=== PATIENT | female | born 1965 | race Caucasian/White ===

== ENCOUNTER 2019-06-18 15:28 | Emergency (ER) | payer SELFPAY ==
[2019-06-18 15:37] VITALS: BP 125/57; PULSE 58; TEMP 98.1; BMI 56.7
--- NOTE | 2019-06-18 15:37 | PDOC ---
Rapid Medical Evaluation Chief Complaint: Injury Time Seen by Provider: 06/18/19 15:32 Medical Evaluation: Allergies Allergy/AdvReac Type Severity Reaction Status Date / Time No Known Allergies Allergy Verified 05/21/15 15:25 06/18/19 15:35 Pt c/o: slipped yesterday on ice, now with rt neck pain, rt upper back and left wrist pain, no loc, no blood thinners Pt on brief exam: no cervical tenderness, left trap tenderness and edema acchymosis over pt ordered for: wrist xray Pt to proceed to the ED Discharge Disposition - Diagnosis Fall, Cervical strain, acute, Wrist sprain - Discharge Dispostion Disposition: HOME Condition at time of disposition: Stable - Prescriptions Prescriptions: Cyclobenzaprine HCl [Flexeril 10 mg] 10 mg PO HS PRN #10 tablet PRN Reason: Muscle Spasms Ibuprofen [Motrin -] 600 mg PO TID #30 tablet - Referrals Referrals: Aris Bean MD [Primary Care Provider] - - Patient Instructions Additional Instructions: You were given an injection of a long-acting anti-inflammatory in the emergency room. Do not start any other anti-inflammatories until tomorrow. You may start the Motrin as prescribed tomorrow. The Flexeril you may start this evening at 1 tablet at bedtime. Return to the emergency room for worsening symptoms and without fail follow-up with your primary care physician in 1 to 2 days for further evaluation and treatment options. - Post Discharge Activity Work/School Note: Back to Work
[2019-06-18] MEDS ORDERED: KETOROLAC TROMETHAMINE 60 MG/2 ML VIAL IM ONE (16:55)
[2019-06-18] MEDS ORDERED: KETOROLAC TROMETHAMINE 60 MG/2 ML VIAL ONE (16:56)
--- NOTE | 2019-06-18 17:06 | PDOC ---
History of Present Illness - General Chief Complaint: Injury Stated Complaint: FALL / NECK PAIN Time Seen by Provider: 06/18/19 15:32 - History of Present Illness Initial Comments: 06/18/19 17:01 53-year-old female without comorbidities presents for evaluation of left wrist pain and neck pain without radicular symptoms x1 day after a fall yesterday while slipping on a wet floor. She states she fell back and hit her head. No post injury nausea vomiting or visual changes no headaches Past History - Past Medical History Allergies/Adverse Reactions: Allergies Allergy/AdvReac Type Severity Reaction Status Date / Time No Known Allergies Allergy Verified 05/21/15 15:25 Home Medications: Ambulatory Orders Albuterol Sulfate Inhaler - [Ventolin HFA Inhaler -] 2 inh PO Q4H #1 inh predniSONE [Deltasone -] 20 mg PO BID #10 tablet 05/21/15 Cyclobenzaprine HCl [Flexeril 10 mg] 10 mg PO HS PRN #10 tablet 06/18/19 Ibuprofen [Motrin -] 600 mg PO TID #30 tablet 06/18/19 COPD: No - Immunization History Immunization Up to Date: No - Psycho Social/Smoking Cessation Hx Smoking History: Never smoked Have you smoked in the past 12 months: No Information on smoking cessation initiated: No Hx Alcohol Use: No Drug/Substance Use Hx: No Substance Use Type: None Review of Systems - Review of Systems Musculoskeletal: Yes: Joint Pain, Neck Pain *Physical Exam - Vital Signs Last Vital Signs Temp Pulse Resp BP Pulse Ox 98.1 F 58 L 18 125/57 L 100 06/18/19 15:34 06/18/19 15:34 06/18/19 15:34 06/18/19 15:34 06/18/19 15:34 - Physical Exam 06/18/19 17:03 GENERAL: The patient is awake, alert, and fully oriented, in no acute distress. HEAD: Normal with no signs of trauma. EYES: sclera anicteric, conjunctiva clear. ENT: Ears normal tympanic membranes normal oropharynx clear uvula midline NECK: Normal range of motion LUNGS: Breath sounds equal, clear to auscultation bilaterally. No wheezes, and no crackles. HEART: S1 and S2 without murmur, rub or gallop. ABDOMEN: Soft, nontender, normoactive bowel sounds. No guarding, no rebound. No masses. EXTREMITIES: Normal range of motion, no edema. No clubbing or cyanosis. No cords, erythema, or tenderness. NEUROLOGICAL: Cranial nerves II through XII grossly intact. PSYCH: Normal mood, normal affect. SKIN: Warm, Dry, normal turgor, no rashes or lesions noted. Left wrist skin color and temperature normal range of motion slightly limited. No tenderness about the distal radius or ulnar styloid or snuffbox. Mild tenderness over the scapholunate area. Full range of motion without pain neurovascular intact ED Treatment Course - Medications Given in the ED: ED Medications Discontinued Medications Generic Name Dose Route Start Last Admin Trade Name Freq PRN Reason Stop Dose Admin Ketorolac Tromethamine 60 mg 06/18/19 16:55 06/18/19 16:59 Toradol Injection - IM 06/18/19 16:56 60 mg ONCE ONE Administration Medical Decision Making - Medical Decision Making 06/18/19 17:03 Cervical strain and left wrist sprain [id number] wrist immobilizer given orthopedic surgery follow-up. Patient pain relieved with Toradol in the emergency room Motrin and Flexeril at home Motrin to start tomorrow Discharge - Discharge Information Problems reviewed: Yes Clinical Impression/Diagnosis: Fall, Cervical strain, acute, Wrist sprain Condition: Stable Disposition: HOME - Admission No - Follow up/Referral Referrals: Aris Bean MD [Primary Care Provider] - - Patient Discharge Instructions Additional Instructions: You were given an injection of a long-acting anti-inflammatory in the emergency room. Do not start any other anti-inflammatories until tomorrow. You may start the Motrin as prescribed tomorrow. The Flexeril you may start this evening at 1 tablet at bedtime. Return to the emergency room for worsening symptoms and without fail follow-up with your primary care physician in 1 to 2 days for further evaluation and treatment options. - Post Discharge Activity Work/Back to School Note: Back to Work
== END 2019-06-18 17:12 | disposition home or self-care (01) ==
LOC: JERFT 15:28
PROC: 2W3DX1Z Immobilization of Left Lower Arm using Splint (ICD-10-PCS; principal; 2019-06-18)
DX: S16.1XXA Strain of muscle, fascia and tendon at neck level, initial encounter (principal); S63.502A Unspecified sprain of left wrist, initial encounter; W00.2XXA Other fall from one level to another due to ice and snow, initial encounter; Y93.89 Activity, other specified; Y92.89 Other specified places as the place of occurrence of the external cause; Y99.2 Volunteer activity
CPT/HCPCS: 73110-TC-LT-FY; 99281-25